=== PATIENT | male | born 1970 | race Caucasian/White ===

== ENCOUNTER 2017-09-25 02:51 | Emergency (ER) | payer SELFPAY ==
[~2017-09-25] VITALS: Ht 167.6 cm; Wt 68.0 kg
[2017-09-25] MEDS ORDERED: MAG HYDROX/AL HYDROX/SIMETH 30 ML, BELLADONNA ALKALOIDS/PHENOBARB 10 ML, LIDOCAINE VISC... PO ONE ×3 (03:00)
== END 2017-09-25 04:58 | disposition home or self-care (01) ==
LOC: SED 02:51
DX: R07.89 Other chest pain (principal)
CPT/HCPCS: 71045; 93005; 99284; J2001